=== PATIENT | female | born 2000 | race African-American/Black ===

== ENCOUNTER 2021-12-17 12:39 | Day surgery (SDC) | payer OTHER ==
[2021-12-17 13:15] VITALS: BMI 23.1
[2021-12-17] MEDS ORDERED: hydrALAZINE 20 MG/ML VIAL SLOW IVP PRN (13:38)
[2021-12-17] MEDS ORDERED: Lactated Ringer's 1,000 ML IV SCH ×2 (13:45)
[2021-12-17 17:45] LABS: Bilirubin Neg (Negative); Blood, Urine Negative (Negative); Clarity Clear (Clear); Glucose, Urine (Dipstick) Normal (Negative); Ketone, Urine 50 mg/dL (Negative); Leukocyte Negative (Negative); Nitrite Negative (Negative); Protein, Urine (Dipstick) Negative (Neg-Trace); Specific Gravity, Urine 1.005 (1.005-1.030); Urobilinogen Normal mg/dL (Less than 2)
== END 2021-12-17 20:01 | disposition home or self-care (01) ==
LOC: CSHLD/OP 12:39
PROVIDERS: ATTEND Obstetrics & Gynecology
DX: O26.892 Other specified pregnancy related conditions, second trimester (principal); R25.2 Cramp and spasm; Z3A.22 22 weeks gestation of pregnancy; Z79.899 Other long term (current) drug therapy
CPT/HCPCS: 81003; 96360; 96361; 99282

== ENCOUNTER 2022-04-11 18:46 | Day surgery (SDC) | payer OTHER ==
[2022-04-11 19:29] VITALS: BMI 27.8
[2022-04-11 19:52] LABS: Fetal Membranes Rupture No Membranes Rupture (No Rupture)
[2022-04-11] MEDS ORDERED: hydrALAZINE 20 MG/ML VIAL SLOW IVP PRN (19:58)
== END 2022-04-11 20:15 | disposition home or self-care (01) ==
LOC: CSHLD/OP 18:46
PROVIDERS: ATTEND Advanced Practice Midwife
DX: O98.813 Other maternal infectious and parasitic diseases complicating pregnancy, third trimester (principal); B37.31 Acute candidiasis of vulva and vagina; Z3A.39 39 weeks gestation of pregnancy
CPT/HCPCS: 84112; 99283

== ENCOUNTER 2022-04-17 10:31 | Inpatient (IN) | payer OTHER ==
[2022-04-17 10:59] VITALS: BMI 22.6
[2022-04-17] MEDS ORDERED: Lidocaine 1% (PF) 30 ML VIAL SC PRN (11:39)
[2022-04-17] MEDS ORDERED: HYDROcodone/Acetaminophen 5/325 mg Tablet PO PRN ×4 (11:39→18:48)
[2022-04-17] MEDS ORDERED: Butorphanol Tartrate 1 MG/ML VIAL SLOW IVP PRN (11:39)
[2022-04-17] MEDS ORDERED: Misoprostol 200 MCG TAB PR PRN (11:39)
[2022-04-17] MEDS ORDERED: Ibuprofen 800 MG TAB PO PRN (11:39)
[2022-04-17] MEDS ORDERED: Methylergonovine 0.2 MG/ML VIAL IM PRN ×2 (11:39→18:48)
[2022-04-17] MEDS ORDERED: Promethazine HCl 25 MG/ML VIAL IM PRN (11:39)
[2022-04-17] MEDS ORDERED: hydrALAZINE 20 MG/ML VIAL SLOW IVP PRN ×2 (11:39→18:48)
[2022-04-17] MEDS ORDERED: Ondansetron PF 4 MG/2 ML Vial IVP PRN (11:39)
[2022-04-17] MEDS ORDERED: Lactated Ringer's 1,000 ML IV SCH (11:45)
[2022-04-17] MEDS ORDERED: NS w/ Oxytocin 30 units 500 ML IV SCH ×2 (11:45→18:48)
[2022-04-17 12:06] LABS: Hemoglobin 9.4 g/dL (12.0-15.5); Mean Corpuscular HGB CONC 31.1 g/dL (32.0-36.0); Mean Corpuscular Hemoglobin 22.8 pg (27.0-33.0); Mean Corpuscular Volume 73.3 fl (81.6-98.3); Mean Platelet Volume 9.9 fl (7.4-10.4); Platelet Count 327 10x3/uL (150-450); RBC Distribution Width 15.7 % (11.5-14.5); Red Blood Cell (RBC) Count 4.12 10x6/uL (3.90-5.03); White Blood Cell (WBC) Count 8.8 10x3/uL (3.5-10.5)
[2022-04-17 12:33] LABS: HBSAg Index 0.14 S/CO (0-0.99); Hep B Surf Ag Non-Reactive S/CO (NonReactive)
[2022-04-17 12:35] LABS: Syphilis Antibody Nonreactive (Nonreactive); Syphilis Antibody Index 0.05 S/CO (<1.00 Non-Reactive)
[2022-04-17] MEDS ORDERED: Benzocaine-Menthol 82.5 ML CAN TOP PRN (18:48)
[2022-04-17] MEDS ORDERED: Lanolin Ointment 7 GM TUBE TOP PRN (18:48)
[2022-04-17] MEDS ORDERED: Bisacodyl 10 MG SUPP PR PRN (18:48)
[2022-04-17] MEDS ORDERED: Milk Of Magnesia 30 ML UDCUP PO PRN (18:48)
[2022-04-17] MEDS ORDERED: Boostrix 0.5 ML (Tdap) VIAL (>/=7 yrs of age) IM ONE (18:48)
[2022-04-17] MEDS ORDERED: Misoprostol 200 MCG TAB VAG PRN (18:48)
[2022-04-17] MEDS ORDERED: Ferrous Sulfate 325 MG TAB PO SCH (19:00)
[2022-04-17 19:55] LABS: SARS-CoV-2 NAA Rapid Test Not Detected (NotDetected)
[2022-04-17] MEDS: Ibuprofen 800 MG TAB PO SCH (21:15)
[2022-04-17] MEDS: Docusate 100 MG CAP PO SCH (21:15)
[2022-04-18] MEDS: Ibuprofen 800 MG TAB PO SCH ×3 (06:06→21:56)
[2022-04-18] MEDS: Prenatal Vitamin 1 TAB PO SCH (09:15)
[2022-04-18] MEDS: Ferrous Sulfate 325 MG TAB PO SCH ×2 (09:15→17:05)
[2022-04-18] MEDS: Docusate 100 MG CAP PO SCH ×3 (09:16→21:57)
[2022-04-18] MEDS ORDERED: Acetaminophen 500 MG TAB PO PRN (11:49)
[2022-04-18 15:20] VITALS: TEMP 98.4
[2022-04-19] MEDS: Ibuprofen 800 MG TAB PO SCH (06:10)
[2022-04-19 07:34] VITALS: BP 110/61
[2022-04-19] MEDS: Docusate 100 MG CAP PO SCH (09:31)
[2022-04-19] MEDS: Ferrous Sulfate 325 MG TAB PO SCH (09:31)
[2022-04-19] MEDS: Prenatal Vitamin 1 TAB PO SCH (09:32)
== END 2022-04-19 13:10 | disposition home or self-care (01) | DRG 807 ==
LOC: CSHLD/OP 10:31 → CSHLD 11:26 → CSHPP 18:29
PROVIDERS: ADMIT Obstetrics & Gynecology; ATTEND Obstetrics & Gynecology
PROC: 10E0XZZ Delivery of Products of Conception, External Approach (ICD-10-PCS; principal; 2022-04-17)
PROC: 10907ZC Drainage of Amniotic Fluid, Therapeutic from Products of Conception, Via Natural or Artificial Opening (ICD-10-PCS; 2022-04-17)
DX: O98.52 Other viral diseases complicating childbirth (principal); Z37.0 Single live birth; Z3A.39 39 weeks gestation of pregnancy; Z20.822 Contact with and (suspected) exposure to COVID-19; B00.9 Herpesviral infection, unspecified; Z79.899 Other long term (current) drug therapy; O99.893 Other specified diseases and conditions complicating puerperium; M25.559 Pain in unspecified hip; O32.6XX0 Maternal care for compound presentation, not applicable or unspecified
CPT/HCPCS: 36415; 85027; 86780; 86850; 86900; 86901; 87340; 99285; J2590; U0002